=== PATIENT | female | born 1940 | race Caucasian/White ===

== ENCOUNTER 2018-08-03 23:01 | Inpatient (IN) | payer OTHER, MEDICAID ==
[~2018-08-03] VITALS: Ht 152.4 cm; Wt 107.0 kg
[2018-08-03 23:11] VITALS: Ht 152.4 cm; Wt 107.0 kg
[2018-08-03 23:45] LABS: BASOPHIL % 0.2 % (0-2); PLATELET COUNT 293 x10^3mcL (130-400); RED CELL DISTRIBUTION WIDTH 13.1 % (11.5-14.5)
[2018-08-03 23:57] LABS: CALCIUM 9.1 mg/dL (8.5-10.1); CARBON DIOXIDE 26.6 mmol/L (21-32); CHLORIDE SERUM 105 mmol/L (98-107); CREATININE SERUM 1.1 mg/dL (0.6-1.0); GLUCOSE SERUM 222 mg/dL (74-106); POTASSIUM SERUM 3.9 mmol/L (3.5-5.1); SODIUM SERUM 141 mmol/L (136-145)
[2018-08-04 00:13] LABS: ALBUMIN 3.5 g/dL (3.4-5.0); ALKALINE PHOSPHATASE 122 U/L (46-116); ALT/SGPT 14 U/L (14-59); AST/SGOT 9 U/L (15-37); BILIRUBIN TOTAL 0.2 mg/dL (0.20-1.00); TOTAL PROTEIN, SERUM 7.6 g/dL (6.4-8.2)
[2018-08-04 00:15] LABS: CK-MB 1.3 ng/mL (0-3.6)
[2018-08-04 00:36] LABS: UA SPECIFIC GRAVITY 1.025 (1.005-1.035); microscopic required? YES; urine erythrocyte NEGATIVE (NEGATIVE)
[2018-08-04] MEDS ORDERED: TENORMIN100 MG PO (01:28)
[2018-08-04] MEDS ORDERED: METFORMIN HCL500 MG PO (01:31)
[2018-08-04] MEDS ORDERED: GEMFIBROZIL600 MG PO (01:31)
[2018-08-04] MEDS ORDERED: SYNTHROID0.125 MG PO (01:32)
[2018-08-04] MEDS ORDERED: LOSARTAN POTASS1 TAB PO (01:32)
[2018-08-04] MEDS ORDERED: IBUPROFEN400 MG PO (01:33)
[2018-08-04 02:54] LABS: MAGNESIUM 1.7 mg/dL (1.8-2.4); PHOSPHOROUS 3.8 mg/dL (2.5-4.9)
[2018-08-04 02:57] LABS: CHOLESTEROL/HDL RATIO 3.9
[2018-08-04 05:04] LABS: BASOPHIL % 0.3 % (0-2); PLATELET COUNT 261 x10^3mcL (130-400); RED CELL DISTRIBUTION WIDTH 12.9 % (11.5-14.5)
[2018-08-04 05:17] LABS: CALCIUM 9.3 mg/dL (8.5-10.1); CARBON DIOXIDE 26.7 mmol/L (21-32); CHLORIDE SERUM 106 mmol/L (98-107); CREATININE SERUM 0.9 mg/dL (0.6-1.0); GLUCOSE SERUM 242 mg/dL (74-106); MAGNESIUM 1.7 mg/dL (1.8-2.4); PHOSPHOROUS 4.3 mg/dL (2.5-4.9); POTASSIUM SERUM 4.2 mmol/L (3.5-5.1); SODIUM SERUM 143 mmol/L (136-145)
[2018-08-04 13:22] VITALS: BP 168/63
[2018-08-04 18:20] VITALS: BP 149/70
[2018-08-04 22:03] VITALS: BP 153/65
[2018-08-05 05:56] VITALS: BP 149/74
[2018-08-05 06:36] LABS: BASOPHIL % 0.3 % (0-2); PLATELET COUNT 234 x10^3mcL (130-400); RED CELL DISTRIBUTION WIDTH 13.3 % (11.5-14.5)
[2018-08-05 07:06] LABS: CALCIUM 8.5 mg/dL (8.5-10.1); CARBON DIOXIDE 30.1 mmol/L (21-32); CHLORIDE SERUM 108 mmol/L (98-107); CREATININE SERUM 0.6 mg/dL (0.6-1.0); GLUCOSE SERUM 173 mg/dL (74-106); MAGNESIUM 1.7 mg/dL (1.8-2.4); PHOSPHOROUS 4.1 mg/dL (2.5-4.9); POTASSIUM SERUM 3.4 mmol/L (3.5-5.1); SODIUM SERUM 147 mmol/L (136-145)
[2018-08-05 09:00] VITALS: BP 152/66
[2018-08-05 13:00] VITALS: BP 146/58
[2018-08-05 16:20] VITALS: BP 135/64
[2018-08-05 21:35] VITALS: BP 148/67
[2018-08-06 06:31] VITALS: BP 132/55
[2018-08-06 07:03] LABS: BASOPHIL % 0.2 % (0-2); PLATELET COUNT 239 x10^3mcL (130-400); RED CELL DISTRIBUTION WIDTH 13.2 % (11.5-14.5)
[2018-08-06 07:31] LABS: CALCIUM 8.7 mg/dL (8.5-10.1); CARBON DIOXIDE 33.2 mmol/L (21-32); CHLORIDE SERUM 105 mmol/L (98-107); CREATININE SERUM 0.7 mg/dL (0.6-1.0); GLUCOSE SERUM 157 mg/dL (74-106); MAGNESIUM 2.3 mg/dL (1.8-2.4); PHOSPHOROUS 3.4 mg/dL (2.5-4.9); POTASSIUM SERUM 3.8 mmol/L (3.5-5.1); SODIUM SERUM 145 mmol/L (136-145)
[2018-08-06 09:22] VITALS: BP 138/68
[2018-08-06 13:46] VITALS: BP 165/69
[2018-08-06 18:10] VITALS: BP 116/57
[2018-08-06 21:35] VITALS: BP 141/69
[2018-08-07 06:23] VITALS: BP 146/63
[2018-08-07 06:55] LABS: BASOPHIL % 0.3 % (0-2); PLATELET COUNT 249 x10^3mcL (130-400); RED CELL DISTRIBUTION WIDTH 13.1 % (11.5-14.5)
[2018-08-07 07:50] LABS: CALCIUM 8.5 mg/dL (8.5-10.1); CARBON DIOXIDE 34.8 mmol/L (21-32); CHLORIDE SERUM 105 mmol/L (98-107); GLUCOSE SERUM 180 mg/dL (74-106); MAGNESIUM 2.2 mg/dL (1.8-2.4); PHOSPHOROUS 2.7 mg/dL (2.5-4.9); POTASSIUM SERUM 3.9 mmol/L (3.5-5.1); SODIUM SERUM 144 mmol/L (136-145)
[2018-08-07 09:25] VITALS: BP 142/55
[2018-08-07 12:11] VITALS: BP 128/48
[2018-08-07 16:17] VITALS: BP 149/54
[2018-08-07 19:58] VITALS: BP 130/51
[2018-08-08 05:04] VITALS: BP 119/48
[2018-08-08 08:00] VITALS: BP 127/59
[2018-08-08 12:06] VITALS: BP 121/55
[2018-08-08 12:07] VITALS: BP 156/55
[2018-08-08 16:19] VITALS: BP 138/69
[2018-08-08 21:39] VITALS: BP 132/56
[2018-08-09 05:58] VITALS: BP 140/62
[2018-08-09 06:37] LABS: CALCIUM 8.5 mg/dL (8.5-10.1); CARBON DIOXIDE 32.2 mmol/L (21-32); CHLORIDE SERUM 105 mmol/L (98-107); CREATININE SERUM 0.8 mg/dL (0.6-1.0); GLUCOSE SERUM 92 mg/dL (74-106); MAGNESIUM 2.4 mg/dL (1.8-2.4); PHOSPHOROUS 2.3 mg/dL (2.5-4.9); POTASSIUM SERUM 4.5 mmol/L (3.5-5.1); SODIUM SERUM 143 mmol/L (136-145)
[2018-08-09 06:41] LABS: BASOPHIL % 0.2 % (0-2); PLATELET COUNT 248 x10^3mcL (130-400)
[2018-08-09 08:35] VITALS: BP 146/62
[2018-08-09 11:05] VITALS: BP 152/83
[2018-08-09 17:00] VITALS: BP 127/71
[2018-08-09 20:48] VITALS: BP 153/77
[2018-08-10 05:41] VITALS: BP 144/69
[2018-08-10 06:18] LABS: CALCIUM 8.4 mg/dL (8.5-10.1); CARBON DIOXIDE 29.4 mmol/L (21-32); CHLORIDE SERUM 101 mmol/L (98-107); CREATININE SERUM 0.9 mg/dL (0.6-1.0); GLUCOSE SERUM 110 mg/dL (74-106); PHOSPHOROUS 3.2 mg/dL (2.5-4.9); POTASSIUM SERUM 3.9 mmol/L (3.5-5.1); SODIUM SERUM 139 mmol/L (136-145)
[2018-08-10 07:34] LABS: BASOPHIL % 0.1 % (0-2); PLATELET COUNT 238 x10^3mcL (130-400); RED CELL DISTRIBUTION WIDTH 12.8 % (11.5-14.5)
[2018-08-10 08:00] VITALS: BP 157/75
[2018-08-10 16:45] VITALS: BP 135/61
[2018-08-10 20:42] VITALS: BP 161/87
[2018-08-11 06:02] VITALS: BP 121/52
[2018-08-11 06:36] LABS: CALCIUM 7.9 mg/dL (8.5-10.1); CARBON DIOXIDE 26.7 mmol/L (21-32); CHLORIDE SERUM 107 mmol/L (98-107); CREATININE SERUM 0.7 mg/dL (0.6-1.0); GLUCOSE SERUM 72 mg/dL (74-106); MAGNESIUM 1.7 mg/dL (1.8-2.4); PHOSPHOROUS 3.2 mg/dL (2.5-4.9); POTASSIUM SERUM 3.7 mmol/L (3.5-5.1); SODIUM SERUM 145 mmol/L (136-145)
[2018-08-11 06:40] LABS: BASOPHIL % 0.4 % (0-2); PLATELET COUNT 241 x10^3mcL (130-400); RED CELL DISTRIBUTION WIDTH 13.1 % (11.5-14.5)
[2018-08-11 08:31] VITALS: BP 123/69
[2018-08-11 12:19] VITALS: BP 137/61
[2018-08-11 12:21] VITALS: BP 156/78
[2018-08-11 16:39] VITALS: BP 142/61
[2018-08-11 21:58] VITALS: BP 148/82
[2018-08-12 05:23] VITALS: BP 141/48
[2018-08-12 09:50] VITALS: BP 124/48
[2018-08-12] MEDS ORDERED: GAS RELIEF 8080 MG PO (11:58)
[2018-08-12] MEDS ORDERED: MIRALAX17 GM/Dose PO (11:59)
[2018-08-12] MEDS ORDERED: IBUPROFEN400 MG PO (12:00)
[2018-08-12 12:17] VITALS: BP 124/48
== END 2018-08-12 14:18 | disposition home or self-care (01) | DRG 388 ==
LOC: ED 23:01 → MU 08-04 01:11 → DU 08-04 01:11 → MU 08-04 12:54 → DU 08-04 20:09 → MU 08-08 09:55
PROVIDERS: Emergency Medicine; Internal Medicine; Internal Medicine Gastroenterology; ADMIT General Practice
PROC: 0DB78ZX Excision of Stomach, Pylorus, Via Natural or Artificial Opening Endoscopic, Diagnostic (ICD-10-PCS; principal; 2018-08-09 08:00)
PROC: 0DJD8ZZ Inspection of Lower Intestinal Tract, Via Natural or Artificial Opening Endoscopic (ICD-10-PCS; 2018-08-09 08:00)
DX: K56.600 Partial intestinal obstruction, unspecified as to cause (principal); N17.0 Acute kidney failure with tubular necrosis; Z68.41 Body mass index [BMI] 40.0-44.9, adult; N39.0 Urinary tract infection, site not specified; D68.69 Other thrombophilia; E11.65 Type 2 diabetes mellitus with hyperglycemia; I10 Essential (primary) hypertension; K29.70 Gastritis, unspecified, without bleeding; K44.9 Diaphragmatic hernia without obstruction or gangrene; G89.29 Other chronic pain; M54.9 Dorsalgia, unspecified; E83.42 Hypomagnesemia; E03.9 Hypothyroidism, unspecified; E78.5 Hyperlipidemia, unspecified; E66.9 Obesity, unspecified; Z87.891 Personal history of nicotine dependence; Z79.84 Long term (current) use of oral hypoglycemic drugs; Z79.1 Long term (current) use of non-steroidal anti-inflammatories (NSAID)
CPT/HCPCS: 43235; 45378; 82962; 83880; J1170; J1200; J1610; J1815; J1885; J2250; J2270; J2310; J2405; J2765; J3010; J3475; J3480; J3490; J7030; J7042; J8597; Q0092; Q9967